=== PATIENT | female | born 1985 | race Caucasian/White ===

== ENCOUNTER → 2021-10-06 11:06 | Outpatient (BNVA) | payer BC, SELFPAY | PROVIDERS: Family Provider Nurse Practitioner Family; Visit Provider Family Medicine | DX: Z71.3 Dietary counseling and surveillance (principal); Z76.89 Persons encountering health services in other specified circumstances | CPT/HCPCS: 80053; 80061; 84443; 85025 ==

== ENCOUNTER 2022-10-19 19:21 | Emergency (ER) | payer BC, SELFPAY ==
[2022-10-19 19:28] VITALS: BP 128/83; PULSE 90; RESP 18; TEMP 36.6; O2SAT 97; BMI 34.3
--- NOTE | 2022-10-19 20:17 | W.ED.HA ---
HPI - Headache General: Chief Complaint: Headache Stated Complaint: headache 2 weeks Time Seen by Provider: 10/19/22 19:55 Source: patient Mode of arrival: ambulatory Limitations: no limitations History of Present Illness: 36-year-old female has had a history of headaches in the past cyst with likely migraine states she had a headache that has been intermittent over the last 2 weeks. States it is currently an 8 out of 10 that gradually onset she does have some photophobia and phonophobia she denies any fever denies any stiff neck she denies any vomiting or diarrhea. Denies any radiation of her pain Associated symptoms: Deny chest pain, fever(s), nausea, rash or vomiting Review of Systems Const: Denies: fever(s), chills, body aches or change in appetite Eyes: Denies: blurry vision or eye discomfort ENMT: Denies: throat pain or dental pain Card: Denies: chest pain Resp: Denies: dyspnea GI: Denies: abdominal pain, nausea, vomiting or diarrhea : Denies: dysuria Musc: Denies: neck pain or back pain Skin/Breast: Denies: rash Neuro: Reports: headache(s) Psych: Denies: depression Gigi/Lymph: Denies: easy bruising All/Imm: Denies: urticaria PFSH ED PFSH: Medical History (Updated 10/19/22 @ 21:15 by Cece Elam MD) Chronic migraine Social History Smoking and tobacco status: never smoked Alcohol intake: current Alcohol intake frequency: holidays/special occasions only Physical Exam Const: COMMON NORMALS: no acute distress, patient oriented x3 and healthy appearing HENMT: COMMON NORMALS: normocephalic and atraumatic HEAD & SCALP: normocephalic and atraumatic Eye: COMMON NORMALS: Equal, round and reactive pupils present and EOMs intact bilaterally PUPIL: Yes Equal, round and reactive pupils present Neck/C-Spine: COMMON NORMALS: full ROM and supple Chest: COMMONS NORMALS: normal inspection of the chest and normal palpation of entire chest wall Resp: COMMON NORMALS: normal respiratory effort, No retractions, No use of accessory muscles and clear to auscultation bilaterally AUSCULTATION: clear to auscultation bilaterally Cardio: COMMON NORMALS: regular rate, regular rhythm and No murmurs present (Cardio) RATE: regular rate RHYTHM: regular rhythm GI: COMMON NORMALS: Normal to inspection, nondistended, normoactive bowel sounds present, Soft to palpation, non-tender and no masses PALPATION: Yes Soft to palpation Extremity: COMMON NORMALS: normal to inspection and full ROM Neuro: COMMON NORMALS: patient oriented x3, moves all extremities and no focal motor deficits Psych: COMMON NORMALS: mental status grossly normal, Normal thought process present and cooperative THOUGHT PROCESS: Normal thought process present Skin: COMMON NORMALS: no rashes or lesions noted and no wounds GENERAL SKIN EXAM: no rashes or lesions noted Course Vital Signs: Vital signs: Vital Signs Temperature 97.9 F 10/19/22 19:28 Pulse Rate 90 10/19/22 19:28 Respiratory Rate 18 10/19/22 19:28 Blood Pressure 128/83 10/19/22 19:28 Pulse Oximetry 95 10/19/22 21:04 Oxygen Delivery Me thod 10/19/22 19:28 MDM - Headache Medical Decision Making Patient presents here with a headache is likely migraine headache has resolved here after Reglan Benadryl no sign of subarachnoid hemorrhage. Or meningitis. She is to follow-up with her PCP she is appointment next Wednesday she is return if worsening she understands agrees to plan. Discharge Plan Discharge Patient Disposition: Home Clinical Impression: Headache Condition: Stable Prescriptions: No Action sumatriptan succinate 25 mg tablet See Rx Instructions PO .COMPLEX Qty: 10 2RF Rx Instructions: take 1 tab at onset of headache; if no relief may repeat 1 tab after at least 2 hrs; max = 4 tabs/24 hr PO phentermine 37.5 mg tablet 37.5 mg PO DAILY Qty: 30 2RF Rx Instructions: must administer 30 minutes before or 1-2 hours after breakfast Discharge Orders: Discharge ED (Routine); Ordered 10/19/22 Ordered By: Cece Elam Referrals: Donato Pratt DO [Primary Care Provider] - 1-3 days Discharge Diet: Advance as tolerated Discharge Activity: Resume usual activity Patient Instructions: General Headache (ED) 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
[2022-10-19] MEDS: diphenhydrAMINE 50 mg/mL SDV 1mL IVP (20:30)
[2022-10-19] MEDS: ketorolac 30 mg/mL INJ 15 MG IVP (20:31)
[2022-10-19] MEDS: metoclopramide 5 mg/mL SDV 2 mL 10 MG IVP (20:31)
[2022-10-19 21:04] VITALS: O2SAT 95
[2022-10-19 21:29] VITALS: BP 118/75; PULSE 78; RESP 17; O2SAT 96
== END 2022-10-19 21:33 | disposition home or self-care (01) ==
PROVIDERS: Emergency Provider Emergency Medicine; PCP Family Medicine
DX: R51.9 Headache, unspecified (principal)
CPT/HCPCS: 96374; 96375; 99284; J1200; J1885; J2765

== ENCOUNTER → 2022-11-09 15:55 | Outpatient (BNVA) | payer BC, SELFPAY | PROVIDERS: PCP Family Medicine; Visit Provider Family Medicine | DX: G44.209 Tension-type headache, unspecified, not intractable (principal); I10 Essential (primary) hypertension | CPT/HCPCS: 85025 ==

== ENCOUNTER → 2022-11-10 08:46 | Outpatient (BNVA) | payer BC, SELFPAY | PROVIDERS: PCP Family Medicine; Visit Provider Family Medicine | DX: I10 Essential (primary) hypertension (principal); G44.209 Tension-type headache, unspecified, not intractable | CPT/HCPCS: 80053; 85025 ==

== ENCOUNTER 2023-10-06 20:30 | Emergency (ER) | payer BC, SELFPAY ==
[2023-10-06 20:32] VITALS: BP 151/92; PULSE 93; RESP 18; TEMP 36.7; O2SAT 99
--- NOTE | 2023-10-06 20:59 | W.ED.HA ---
HPI - Headache General: Chief Complaint: Headache Stated Complaint: migrane nausea Time Seen by Provider: 10/06/23 20:38 History of Present Illness: 37-year-old female comes in with migraine headache. Patient has had similar headaches in the past. On exam patient appears nontoxic. Patient denies any other concerns. Review of Systems General: Reports: 10 or more systems reviewed and unremarkable except in HPI and below PFSH ED PFSH: Medical History Chronic migraine Social History Smoking and tobacco/nicotine status: never used tobacco/nicotine Alcohol intake: current Alcohol intake frequency: holidays/special occasions only Substance/Drug Use: never Physical Exam Const: COMMON NORMALS: alert HENMT: COMMON NORMALS: normocephalic HEAD & SCALP: normocephalic Neck/C-Spine: COMMON NORMALS: full ROM Resp: COMMON NORMALS: normal respiratory effort and clear to auscultation bilaterally AUSCULTATION: clear to auscultation bilaterally Cardio: COMMON NORMALS: regular rate RATE: regular rate GI: COMMON NORMALS: Soft to palpation PALPATION: Yes Soft to palpation Back/Pelvis: COMMON NORMALS: thoracic and lumbar spine normal to inspection Extremity: COMMON NORMALS: full ROM Neuro: SENSORIUM/ORIENTATION: Yes alert Skin: COMMON NORMALS: turgor normal GENERAL SKIN EXAM: turgor normal Course Vital Signs: Vital signs: Vital Signs Temperature 98.1 F 10/06/23 20:32 Pulse Rate 93 10/06/23 20:32 Respiratory Rate 18 10/06/23 20:32 Blood Pressure 151/92 10/06/23 20:32 Pulse Oximetry 99 10/06/23 20:32 Oxygen Delivery Me thod Room Air 10/06/23 20:32 MDM - Headache Medical Decision Making 37-year-old female comes in today for complaints of migraine headache exacerbation. On exam patient appears nontoxic. No focal neural deficits. Patient endorses headache for 3 days. Differential diagnosis includes tension headache, migraine headache, anxiety. Patient was medicated with headache cocktail including Reglan, ketorolac, diphenhydramine, and dexamethasone. Patient had resolution of headache and was released to home. No radiology studies performed this visit Discharge Plan Discharge Patient Disposition: Home Clinical Impression: Migraine Qualifiers: Migraine type: other Status migrainosus presence: without status migrainosus Intractability: intractable Qualified Code(s): G43.819 - Other migraine, intractable, without status migrainosus Condition: Stable Prescriptions: No Action sumatriptan succinate 25 mg tablet See Rx Instructions PO .COMPLEX Qty: 10 2RF Rx Instructions: take 1 tab at onset of headache; if no relief may repeat 1 tab after at least 2 hrs; max = 4 tabs/24 hr PO phentermine 37.5 mg capsule 37.5 mg PO DAILY Qty: 30 2RF Rx Instructions: must administer 30 minutes before or 1-2 hours after breakfast propranolol 40 mg tablet See Rx Instructions .ROUTE .COMPLEX Qty: 60 0RF Dose Instruction: Take 1 tablet by mouth twice daily Rx Instructions: Take 1 tablet by mouth twice daily amitriptyline 50 mg tablet See Rx Instructions .ROUTE .COMPLEX Qty: 30 0RF Dose Instruction: Take 1 tablet by mouth once daily Rx Instructions: Take 1 tablet by mouth once daily Discharge Orders: Discharge ED (Routine); Ordered 10/06/23 Ordered By: Abdirahman Strange Referrals: Donato Pratt DO [Primary Care Provider] - Discharge Diet: Usual diet Discharge Activity: Increase activity as tolerated Patient Instructions: Migraine Headache (ED) Activity Restrictions/Additional Instructions: Home and rest. Drink plenty water and fluids. Take medications as directed. Follow-up with primary care for further instructions. Coding Level of Care Code ED Preas[employer]er [employer] for [employer] Solano
[2023-10-06] MEDS: sodium chloride 0.9% 250 ML IV (21:21)
[2023-10-06] MEDS: ketorolac 30 mg/mL INJ 15 MG IVP (21:22)
[2023-10-06] MEDS: metoclopramide 5 mg/mL SDV 2 mL 10 MG IVP (21:23)
[2023-10-06] MEDS: diphenhydrAMINE 50 mg/mL SDV 1mL 25 MG IVP (21:24)
[2023-10-06] MEDS: dexamethasone 10 mg/mL INJ IVP (21:26)
[2023-10-06 22:17] VITALS: BP 111/70; PULSE 73; O2SAT 96
== END 2023-10-06 22:18 | disposition home or self-care (01) ==
PROVIDERS: Emergency Provider Nurse Practitioner Family; PCP Family Medicine
DX: G43.819 Other migraine, intractable, without status migrainosus (principal)
CPT/HCPCS: 96374; 96375; 99284; J1100; J1200; J1885; J2765; J7050